=== PATIENT | female | born 1935 ===

== ENCOUNTER 2021-04-16 19:49 | Inpatient (IN) | payer MEDICARE, OTHER, SELFPAY ==
--- NOTE | 2021-04-16 20:20 | PM.HP.1 ---
History of Present Illness History of Present Illness Chief complaint: Dx GI bleed Narrative: Sharon Mcnally is a 85 year old female with a medical history of sick sinus syndrome with pacer, proximal atrial fibrillation on eliquis, essential hypertension, coronary artery disease in [place] artery, reactive airway disease, jwb-uubkhwj-rkntovcvi type 2 diabetes, history of WI, history of stroke, hyperlipidemia, restless leg syndrome, right bundle emily block, PVD, and CKD stage III being transferred from [facility] for lower GI Bleed, Dr. Russo has accepted and will consult/scope tomorrow. Patient was recently hospitalized at [facility] from 03/04-03/18/2021 with a discharge diagnosis of CVA (left leg weakness, dysarthria, and mild facial droop) left leg cellulitis, reactive airway disease and restless leg syndrome. Through patient reports that she developed rust colored stool approximately 1 week ago then 3 or so days ago she had bright red diarrhea, then she continued to have small bowel movements the last few days that were continued to be rest colored she notes that she stopped her Eliquis 2.5 days ago following the red blood diarrhea. Over the past week she has had increasing mild shortness of breath, chills, leg pain, and increasing fatigue. She has no history GI bleed. She believes she had a colonoscopy and EGD last about 2008. She denies chest pain, abdominal pain, nausea, vomiting, urinary symptoms, hematuria, new weakness, numbness, tingling, headache, changes in vision. She denies any recent illness injury or trauma. Patient arrived with her 1st unit of blood infusing patient is O-positive. Her vital signs are stable temp 97.1?, BP 147/82, HR 72, RR 18, O2 saturation 93% on room air. Patient does note that she ambulates at home with a stick. Patient's labs at [facility] HGB 6.3, HCT 19.8, BUN 40, creatinine 1.63, glucose 216, AST 13, alk-phos 119, PT 10.7, INR 1.0, albumin 3.2, RBC 2.3, lipase and troponin both WNL. CT of abdomen with contrast no acute inflammatory process present mild constipation, and sigmoid diverticulosis. Patient History Medical History Acquired hypothyroidism Chronic kidney disease, stage III (moderate) Coronary artery disease involving [place] coronary artery Essential hypertension History of myocardial infarction History of stroke Hyperlipidemia Non-insulin dependent type 2 diabetes mellitus Paroxysmal atrial fibrillation Peripheral vascular disease due to secondary diabetes Reactive airway disease Restless leg syndrome Right bundle branch block (RBBB) Sick sinus syndrome Statin intolerance Surgical History History of cholecystectomy History of coronary artery bypass graft History of permanent cardiac pacemaker placement Family & Social History Family History Mother Diabetes mellitus Congestive heart failure CAD (coronary artery disease) Son Diabetes mellitus Social History: [place], retired, and lives alone. Tobacco & Substance use: Tobacco patient quit smoking in 1997-smoked an average of 1 pack per day times 25 years Alcohol patient does not drink alcohol Drugs patient does not use recreational substances Meds Home Medications and Allergies Home Medications Medication Instructions Recorded Confirmed Type albuterol 90 mcg/actuation aerosol 1 mcg INHALATION PRN PRN 04/16/21 04/16/21 History inhaler apixaban 5 mg tablet 5 mg PO BID 04/16/21 04/16/21 History azelastine 137 mcg (0.1 %) nasal 1 spray INTRANASAL BID 04/16/21 04/16/21 History spray aerosol budesonide-formoterol HFA 160 2 puff INHALATION BID 04/16/21 04/16/21 History mcg-4.5 mcg/actuation aerosol inhaler (Symbicort) calcium acetate(phosphat bind) 667 667 mg PO TID 04/16/21 04/16/21 History mg capsule carvedilol 12.5 mg tablet (Coreg) 37.5 mg PO BID 04/16/21 04/16/21 History cholecalciferol (vitamin D3) 25 25 mcg PO DAILY 04/16/21 04/16/21 History mcg (1,000 unit) tablet cinnamon bark 500 mg capsule 500 mg PO DAILY 04/16/21 04/16/21 History felodipine 2.5 mg tablet,extended 2.5 mg PO DAILY 04/16/21 04/16/21 History release 24 hr glimepiride 2 mg tablet 6 mg PO DAILY 04/16/21 04/16/21 History levothyroxine 100 mcg tablet 100 mcg PO DAILY 04/16/21 04/16/21 History lisinopril 5 mg tablet 5 mg PO BID 04/16/21 04/16/21 History nitroglycerin 0.4 mg sublingual 0.4 mg SUBLINGUAL Q5-15M PRN 04/16/21 04/16/21 History tablet pramipexole 0.25 mg tablet 0.25 mg PO BEDTIME 04/16/21 04/16/21 History (Mirapex) rosuvastatin 5 mg tablet (Crestor) 5 mg PO DAILY 04/16/21 04/16/21 History vitamin A-vitamin C-vit E-min 1 tab PO DAILY 04/16/21 04/16/21 History tablet vitamin B complex (B 1 tab PO DAILY 04/16/21 04/16/21 History Complex-Vitamin B12) Allergies Allergy/AdvReac Type Severity Reaction Status Date / Time amlodipine Allergy Intermediate Flushing Verified 04/16/21 20:29 hydralazine Allergy Intermediate Verified 04/16/21 20:37 metformin Allergy Intermediate Vomiting Verified 04/16/21 20:37 Yeast Allergy Intermediate Hypertensio Verified 04/16/21 20:37 n codeine Allergy Mild Verified 04/16/21 20:37 fluticasone [From Flonase] Allergy Mild Verified 04/16/21 20:37 Oxasfqi-Jex-Osu Reductase Allergy Verified 04/16/21 20:37 Inhibitor Sulfa (Sulfonamide Allergy Verified 04/16/21 20:37 Antibiotics) cilostazol AdvReac Intermediate Nose Bleed Verified 04/16/21 20:37 alendronate sodium AdvReac Mild Verified 04/16/21 20:37 [From Fosamax] Review of Systems Review of Systems Narrative: All 12 point systems reviewed with the patient and are negative except otherwise documented. Exam Narrative Exam Narrative: General: Patient is a well-developed, well-nourished in no distress at this time. HEENT: Normocephalic, atraumatic, extraocular muscles intact, oral pharynx is clear and mucous membranes are moist. Neck is supple and symmetric, trachea is midline, no adenopathy, no thyroid enlargement, nontender, no masses palpated. Negative for JVD Chest: Normal AP diameter and contour without kyphoscoliosis, no nasal flaring, retractions, or tachypneic labored Lungs: Auscultation of all lung jensen decreased throughout, coarse, diffuse expiratory wheezing, audible wheezing. Cardio: Adynamic precordium, regular rate and rhythm Abdomen: Soft nontender, negative for organomegaly, or masses. Bowel sounds are present in all 4 quadrants without guarding or rebound, no CVA tenderness. Musculoskeletal: Muscle strength and tone are equal within normal limits, no deformity, crepitus, effusions, cyanosis, clubbing or edema present. Full range of motion intact radial and pedal pulses are normal. Skin: Warm dry and intact without ulcerations or petechiae. Patient has noted lichen sclerosis to mid abdomen, without signs of infection. Neuro: Alert and orientated x3, strength is +5/5 in all extremities, sensation to touch intact, no gross deficits noted of cranial nerves. Psych: Patient has a well-kept appearance, appropriate affect, mental status attitude thought context and judgment are appropriate for age. Assessment & Plan Assessment & Plan narrative: Sharon Mcnally is a 85 year old female with a medical history of sick sinus syndrome with pacer, proximal atrial fibrillation, essential hypertension, coronary artery disease in [place] artery, reactive airway disease, olk-jkbybvu-chvqvcbmk type 2 diabetes, history of WI, history of stroke, hyperlipidemia, restless leg syndrome, right bundle emily block, PVD, and CKD stage III being transferred from [facility] for Lower GI Bleed, Dr. Russo has accepted and will consult/scope tomorrow. 1. Acute lower GI bleed, acute, present on admission, in the setting of sick sinus syndrome, proximal atrial fibrillation anticoagulated on Eliquis, pacemaker, acute on chronic, present on admission-patient is stable and in no distress. -as evidence by melena, positive Hemoccult, HGB 6.3, HCT 19.8 RBC 2.3. -hold patient's Eliquis-Last known dose 2.5days ago. -To be managed by surgery Dr. Russo/Dr. Laurent -patient admitted under transfusion protocol: 1st unit of blood is currently infusing, patient typed and crossed O-positive blood type will receive second unit will recheck H&H 30 minutes following. -Dr. Russo personally consulted and evaluated patient upon admit. Dr. Laurent will perform scope in the morning. -40 mg IV Protonix b.i.d. -patient NPO -patient's pressures are stable will not order fluids at this time concern for fluid overload, will monitor I&O. -Morning Labs ordered -I personally reviewed all patient records from admit March 04, 2021 to [facility], and diagnostic results from ED visit 04/16/2021. [facility] Imaging: -CTA head neck 02/27/2021 no significant abnormal TS of the intra or extracranial circulations, atherosclerotic calcification of the carotid bifurcations without hemodynamically significant narrowing. -XR modified barium swallow 03/07/2021 findings noted ingestion with thin, nectar thick liquids as well as solid consistencies demonstrated multiple episodes of penetration without laci aspiration no cough reflex was elicited there was moderate vallecur and piriform sinus residue. No evidence of laci aspiration. -XR swallowing function with video findings: Multiple episodes of penetration, predominantly with liquids with and without chin tuck -CT head w/o contrast found no evidence of acute intra cranial abnormality, moderate white matter microvascular ischemic changes, and chronic severe left para nasal sinus disease with complete opacification of the left maxillary, sphenoid, and frontal sinuses and ethmoid air cells, progressed since 2016. -Echocardiogram 02/2021 left ventricular ejection fraction 55-60% no regional wall motion abnormalities there is marked biatrial enlargement mild mitral regurgitation is present and moderate tricuspid regurgitation is present aortic leaflets are moderately sclerotic without stenosis estimated pulmonary artery pressure is mildly elevated normal agitated bubble contrast study. Compared to echocardiogram of 11/12/2018 no significant changes was noted -Complete 2D TTE with color flow and Doppler the study is technically difficult left ventricular ejection fraction is 55%. Normal left ventricular chamber size wall thickness and systolic function no regional wall motion abnormalities right ventricular normal right ventricular size and function atria there is marked by atrial enlargement mitral valve mild sclerotic changes of the mitral valve are present mild mitral regurgitation is present aorta and aortic valve normal caliber aortic root, ascending aorta aortic arch and descending thoracic aorta estimated pulmonary artery pressure is mildly elevated. Peak estimated pulmonary artery pressure is 42 estimated RA pressure is 8 mmHg. 2. Essential hypertension in the setting of history of WI and stroke, chronic, present admission -continue patient's lisinopril, Coreg 37.5 b.i.d. felodipine -monitored on telemed, hold Eliquis 3. Hyperlipidemia and coronary artery disease associated mud-ghdwquw-hhefwpmsj type 2 diabetes resulting in chronic kidney disease stage 3, chronic, present on admission -patient placed on diabetes protocol, blood sugar checks q.6 hours while NPO then change to a.c. HS, low-dose sliding scale -continue patient's Crestor, and glyburide once no longer NPO 4. Reactive airway disease, chronic, present on admission -respiratory consult as needed, continue patient's Symbicort and albuterol inhalers 5. Acquired hypothyroidism, chronic, present on admission -Continue patient's levothyroxine once no longer NPO -TSH ordered 6. Restless leg syndrome, chronic, present on admission Continue patient's Mirapex, once no longer NPO 7. Chronic kidney disease stage 3, related to diabetes, hyperlipidemia, CAD, & PVD, chronic, present on admission -initial [employer] 1.63, BUN 40- 03/01/2021 creatinine 1.78, BUN 44 -patient is at baseline Code status:DNR Surrogate decision maker: Sam Maldonado COVID PCR:Negative COVID vaccination: unknown DVT/VTE prophylaxis:SCD's Only Disposition: Patient admitted for lower GI bleed will require surgery consult and colonoscopy, estimated length of stay greater than 2 midnights. I have utilized all available immediate resources to obtain, update, or review the patient's current medications. I confirmed that the patient's advanced care plan is present, Code status is documented and/or surrogate decision maker is listed in the patient's medical record. Time Spent With Patient Critical Care time: I spent a total of [] minutes of critical care time on this patient's care today; this time is exclusive of procedural time.
[2021-04-16 21:55] VITALS: BP 147/82; PULSE 72; RESP 18; TEMP 36.2; O2SAT 97
[2021-04-16 22:04] VITALS: BMI 33.9
--- NOTE | 2021-04-16 22:24 | PC.NURSE ---
Addendum entered by Anita Norman R.N. 04/16/21 23:00: [facility] hospitalist Darvin informed of pt's arrival and in to see patient. Pt NPO and oral swabs provided. Pt oriented to call light. Original Note: Pt arrived via ambulance from [facility] 2156. Blood transfusion completed by medics upon pt's arrival to room. Vital signs T 97.1, RR 18, P 72 with BP 147/82. Room air 97%. Pt's mentation is appropriate. Admission assessment completed. Telemetry placed on pt immediately upon arrival to floor and ICU notified.
--- NOTE | 2021-04-16 22:53 | PM.CN ---
History of Present Illness Consult details Date Patient Seen: 04/16/21 Time Patient Seen: 22:53 Chief complaint: Dx GI bleed Reason for consult: GI bleed Requesting provider: Lon Mireles Narrative: patient is a woman who I was called early in transferred from [facility]. patient began bleeding about a week ago. She suspected it was blood and decreased her Eliquis which she has started 2 months ago to 1 pill a day instead of 2 pills a day. She had 2 large bloody bowel movements a few days ago and it is been at least 2 days since she has had any Eliquis. She was placed on Eliquis apparently for cardiac dysrhythmia. She has a pacemaker. She has never had blood before. It has been at least 15 years since her last colonoscopy. She is known to be a diabetic and has hypertension as well. She also has chronic renal failure with a creatinine of 1.6 As per the emergency physician at [facility] with whom I spoke. Meds Home Medications and Allergies Home Medications Medication Instructions Recorded Confirmed Type albuterol 90 mcg/actuation aerosol 1 mcg INHALATION PRN PRN 04/16/21 04/16/21 History inhaler apixaban 5 mg tablet 5 mg PO BID 04/16/21 04/16/21 History azelastine 137 mcg (0.1 %) nasal 1 spray INTRANASAL BID 04/16/21 04/16/21 History spray aerosol budesonide-formoterol HFA 160 2 puff INHALATION BID 04/16/21 04/16/21 History mcg-4.5 mcg/actuation aerosol inhaler (Symbicort) calcium acetate(phosphat bind) 667 667 mg PO TID 04/16/21 04/16/21 History mg capsule carvedilol 12.5 mg tablet (Coreg) 37.5 mg PO BID 04/16/21 04/16/21 History cholecalciferol (vitamin D3) 25 25 mcg PO DAILY 04/16/21 04/16/21 History mcg (1,000 unit) tablet cinnamon bark 500 mg capsule 500 mg PO DAILY 04/16/21 04/16/21 History felodipine 2.5 mg tablet,extended 2.5 mg PO DAILY 04/16/21 04/16/21 History release 24 hr glimepiride 2 mg tablet 6 mg PO DAILY 04/16/21 04/16/21 History levothyroxine 100 mcg tablet 100 mcg PO DAILY 04/16/21 04/16/21 History lisinopril 5 mg tablet 5 mg PO BID 04/16/21 04/16/21 History nitroglycerin 0.4 mg sublingual 0.4 mg SUBLINGUAL Q5-15M PRN 04/16/21 04/16/21 History tablet pramipexole 0.25 mg tablet 0.25 mg PO BEDTIME 04/16/21 04/16/21 History (Mirapex) rosuvastatin 5 mg tablet (Crestor) 5 mg PO DAILY 04/16/21 04/16/21 History vitamin A-vitamin C-vit E-min 1 tab PO DAILY 04/16/21 04/16/21 History tablet vitamin B complex (B 1 tab PO DAILY 04/16/21 04/16/21 History Complex-Vitamin B12) Allergies Allergy/AdvReac Type Severity Reaction Status Date / Time amlodipine Allergy Intermediate Flushing Verified 04/16/21 20:29 hydralazine Allergy Intermediate Verified 04/16/21 20:37 metformin Allergy Intermediate Vomiting Verified 04/16/21 20:37 Yeast Allergy Intermediate Hypertensio Verified 04/16/21 20:37 n codeine Allergy Mild Verified 04/16/21 20:37 fluticasone [From Flonase] Allergy Mild Verified 04/16/21 20:37 Nyqzwdd-Bkb-Han Reductase Allergy Verified 04/16/21 20:37 Inhibitor Sulfa (Sulfonamide Allergy Verified 04/16/21 20:37 Antibiotics) cilostazol AdvReac Intermediate Nose Bleed Verified 04/16/21 20:37 alendronate sodium AdvReac Mild Verified 04/16/21 20:37 [From Fosamax] Review of Systems Review of Systems Narrative: no cough or cold at this time. She does get a little short winded with walking. No chest pain. No black stool. No seizures or blackouts. Exam Vital Signs (past 8 hours): - 04/16/21 21:55 Temperature 97.1 F L Pulse Rate 72 Respiratory Rate 18 Blood Pressure 147/82 H Pulse Oximetry 97 Oxygen Flow Rate 0 Narrative Exam Narrative: Cooperative pleasant woman in no distress. Eyes are nonicteric. Lungs are clear to auscultation without rales or rhonchi. Heart regular rate and rhythm without murmur gallop. Abdomen is protuberant soft nontender without mass. She has a rough irregular patch of skin at the umbilicus. No obvious hernias. [facility] Medical History (Updated 04/16/21 @ 23:01 by Alfredo Russo MD) Acquired hypothyroidism Chronic kidney disease, stage III (moderate) Coronary artery disease involving [place] coronary artery Essential hypertension History of myocardial infarction History of stroke Hyperlipidemia Non-insulin dependent type 2 diabetes mellitus Paroxysmal atrial fibrillation Peripheral vascular disease due to secondary diabetes Reactive airway disease Restless leg syndrome Right bundle branch block (RBBB) Sick sinus syndrome Statin intolerance Surgical History (Updated 04/16/21 @ 22:58 by Alfredo Russo MD) History of cholecystectomy History of coronary artery bypass graft History of permanent cardiac pacemaker placement Family History Mother Diabetes mellitus Congestive heart failure CAD (coronary artery disease) Son Diabetes mellitus Social History household members: none Tobacco & Substance Use Smoking Status: Former smoker alcohol intake: former Assessment & Plan Assessment and plan (1) GI bleed: Status: Acute (2) Acute blood loss anemia: Status: Acute Assessment & Plan narrative: patient with what sounds like a lower GI bleed related to recently starting Eliquis. She stopped it at least 2 days ago. Recommend transfusion to a crit around 30 given her cardiac status and her symptoms with exertion which only began recently. Will probably come to colonoscopy this admission. I will communicate with my partner Dr. Laurent about this patient in the morning. Time Spent With Patient Critical Care time: I spent a total of [] minutes of critical care time on this patient's care today; this time is exclusive of procedural time.
[2021-04-17] VITALS (17 sets, daily range): BP systolic 126–182; BP diastolic 64–89; PULSE 60–67; RESP 14–21; TEMP 35.8–36.7; O2SAT 91–96
[2021-04-17] MEDS: ACETAMINOPHEN 325 MG TABLET 650 MG PO ×2 (03:29→11:19)
[2021-04-17 05:51] LABS: INR 1.2 (0.9-1.3); Prothrombin Time 13.3 SECONDS (10.1-12.7)
[2021-04-17 05:53] LABS: PTT Partial Thromboplastin Tim 41 SECONDS (26.4-36.2)
[2021-04-17 05:55] LABS: Hemoglobin 8.3 g/dL (12.0-16.0)
[2021-04-17 05:59] LABS: Alanine Aminotransferase 21 IU/L (<35); Albumin 3.7 g/dL (3.5-5.0); Albumin Globulin Ratio 1.2 (1.0-2.8); Alkaline Phosphatase 105 U/L (38-126); Aspartate Aminotransferase 31 IU/L (14-36); BUN Creatinine Ratio 25.2 (6-22); Bilirubin Total 0.5 mg/dL (0.2-1.3); Blood Urea Nitrogen 40 mg/dL (7-17); Calcium 8.8 mg/dL (8.4-10.2); Carbon Dioxide 30 mmol/L (22-32); Chloride 106 mmol/L (98-107); Estimated Glomerular Filt Rate 30.9 mL/min (>60); Glucose 90 mg/dL (80-110); HEMOLYSIS < 15 (0-50); Hematocrit 25.7 % (36-46); Magnesium 1.7 mg/dL (1.6-2.3); Potassium 4.6 mmol/L (3.4-5.1); Sodium 142 mmol/L (137-145); Total Protein 6.7 g/dL (6.3-8.2)
[2021-04-17 06:08] LABS: Troponin I < 0.012 ng/mL (0.01-0.034)
[2021-04-17 06:37] LABS: Thyroid Stimulating Hormone 21.4 uIU/mL (0.47-4.68)
[2021-04-17 06:40] LABS: Hemoglobin A1C% w Est Avg Glu 6.2 % (4.0-6.0)
[2021-04-17] MEDS: BUDESONIDE 0.5 MG/2 ML NEB INH (09:00)
[2021-04-17] MEDS: ALBUTEROL 2.5 MG/3 ML NEB (ADULT) INH ×2 (09:00→13:29)
--- NOTE | 2021-04-17 11:15 | CM.DANOTE ---
DCP: Case received, EMR reviewed and met with patient. Introduced self and role. Was able to get information from patient regarding her baseline activity status prior to hospitalization. DCP assessment completed with information currently available. Patient is an 85 year old female who admitted yesterday afternoon to the care of the hospitalist team. PCP: Dr. Huber at [facility]. Payer: confirmed: Medicare/. Patient came to the hospital via ambulance sent from [facility] secondary to her having some shortness of breath. Patient holds diagnosis of GI Bleed. She was transferred here due to the hospital being full. Patient had recently been to [facility]04-04-10. Patient has history of sick sinus syndrome and has a pacemaker. She also has CKD stage 3 as well. Patient was receiving a transfusion, and is expected to have a colonoscopy. Met with patient. There was no insurance, provider, phone or contact information on her face sheet. She indicated that she has Medicare primary, secondary. She has a son named Lon who is POA, and lives in [place]. Patient stated she lives in [place], was able to obtain her phone number. Sent an email to change admission group with updated information from patient. Patient confirms that she lives alone, and her primary care provider is Dr. Huber at [facility]. She indicated that she is independent, uses a walking stick. She has a son named Lon, as stated above, her other son, Negro, , but her [id number] lives near-by. She is . P: DCP to continue to follow. She does not currently have P.T. orders, but will see how she does medically. Home Health may be an option for patient, and P.T. orders may need to be considered. Kim Rendon RN/[employer] Discharge Planning/Care Management CM Discharge Assessment Start: 04/17/21 11:09 Freq: Status: Active Protocol: Document 04/17/21 11:09 (Rec: 04/17/21 11:15 [id number]) Discharge Planning Assessment Assigned [employer]iler [employer] Kim Rendon RN/[employer] Advance Directives? No History Provided By Patient,Medical Record Prior Living Arrangements Mobile home Household Members none Type of transporation used prior to Drives own vehicle admit Independent with ADL's Yes Is patient alert and oriented? Yes Caregiver for Another No DME Already Rented / Owned Cane Comment Patient indicated that she uses a walking stick. Comment She lives alone in her trailer , but indicated that she has family nearby Discharge Plan Home Transportation Arrangement Family Referrals Initiated None needed Whiteboard Updated in Patient Room with Yes name and ext. 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
[2021-04-17] MEDS: lisinopriL 5 MG TABLET PO ×2 (11:19→21:38)
[2021-04-17] MEDS: carvediloL 12.5 MG TABLET 37.5 MG PO ×2 (11:19→21:38)
[2021-04-17] MEDS: PANTOPRAZOLE 40 MG VIAL IV ×2 (11:20→21:38)
[2021-04-17] MEDS: INFLUENZA HD VACCINE 0.7 ML SYRINGE IM (11:20)
--- NOTE | 2021-04-17 11:44 | PM.CALLCOV.1 ---
Call Coverage Note Note Date of Patient Contact: 04/17/21 Time of Patient Contact: 11:44 Narrative of Care Provided: No acute events. -Clears and bowel prep ordered for today. -NPO after midnight. -Colonoscopy Wednesday 04/18
[2021-04-17] MEDS: PEG3350/SOD SULF,BICARB,CL/KCL 4,000 ML SOLUTION 4000 ML PO (13:30)
--- NOTE | 2021-04-17 14:29 | PM.PN.1 ---
Subjective Subjective Date Patient Seen: 04/17/21 Time Patient Seen: 14:29 Interval history: No further bowel movements today. Feels slightly stronger, no shortness of breath today. Exam Vital Signs (past 8 hours): - 04/17/21 08:15 04/17/21 08:16 04/17/21 09:00 Temperature 97.4 F L 97 F L Pulse Rate 60 60 Respiratory Rate 16 18 Blood Pressure 166/78 H 166/78 H Pulse Oximetry 91 04/17/21 09:02 04/17/21 12:00 04/17/21 13:32 Temperature 97 F L Pulse Rate 64 61 Respiratory Rate 18 18 Blood Pressure 135/67 Pulse Oximetry 94 95 96 Oxygen Delivery Method Room Air Oxygen Flow Rate 0 Narrative Exam Narrative: General:? Patient is a well-developed, well-nourished in no distress at this time. Lungs:? mild diffuse wheezing, much improved, no respiratory distress. No rhonchi or rales. Cardio:?RRR with no m/r/g. Abdomen:? S NT ND Musculoskeletal:? No tenderness of joint effusions Skin:? Warm dry and intact without ulcerations or petechiae. Neuro:? Alert and orientated x3, strength is +5/5 in all extremities, sensation to touch intact, no gross deficits noted of cranial nerves. Psych:? Patient has a well-kept appearance, appropriate affect, mental status attitude thought context and judgment are appropriate for age. Objective Labs Result Diagrams: 04/17/21 05:10 04/17/21 05:10 Labs: Laboratory Results - last 24 hr 04/16/21 04/17/21 04/17/21 23:00 05:10 05:10 Hgb Hct PT 13.3 H INR 1.2 APTT 41 H Sodium 142 Potassium 4.6 Chloride 106 Carbon Dioxide 30 BUN 40 H Creatinine 1.59 H Estimated GFR 30.9 L BUN/Creatinine Ratio 25.2 H Glucose 90 Hemoglobin A1c Calcium 8.8 Magnesium 1.7 Total Bilirubin 0.5 AST 31 ALT 21 Alkaline Phosphatase 105 Troponin I < 0.012 Total Protein 6.7 Albumin 3.7 Globulin 3.0 Albumin/Globulin Ratio 1.2 TSH Blood Type O Positive Antibody Screen Negative Crossmatch See Detail 04/17/21 04/17/21 04/17/21 05:10 05:10 05:10 Hgb 8.3 L Hct 25.7 L PT INR APTT Sodium Potassium Chloride Carbon Dioxide BUN Creatinine Estimated GFR BUN/Creatinine Ratio Glucose Hemoglobin A1c 6.2 H Calcium Magnesium Total Bilirubin AST ALT Alkaline Phosphatase Troponin I Total Protein Albumin Globulin Albumin/Globulin Ratio TSH 21.4 H Blood Type Antibody Screen Crossmatch [facility] Medical History Acquired hypothyroidism Chronic kidney disease, stage III (moderate) Coronary artery disease involving [place] coronary artery Essential hypertension History of myocardial infarction History of stroke Hyperlipidemia Non-insulin dependent type 2 diabetes mellitus Paroxysmal atrial fibrillation Peripheral vascular disease due to secondary diabetes Reactive airway disease Restless leg syndrome Right bundle branch block (RBBB) Sick sinus syndrome Statin intolerance Surgical History History of cholecystectomy History of coronary artery bypass graft History of permanent cardiac pacemaker placement Family History Mother Diabetes mellitus Congestive heart failure CAD (coronary artery disease) Son Diabetes mellitus Social History household members: none Smoking Status: Former smoker alcohol intake: former Assessment & Plan Assessment & Plan narrative: Sharon Mcnally is a 85 year old female with a medical history of sick sinus syndrome with pacer, proximal atrial fibrillation, essential hypertension, coronary artery disease in [place] artery, reactive airway disease, orl-tmbzfhj-xvomgyady type 2 diabetes, history of ND, history of stroke, hyperlipidemia, restless leg syndrome, right bundle emily block, PVD, and CKD stage III direct admission from [facility] for GI bleeding and acute blood loss anemia. 1. Acute lower GI bleed, acute, present on admission, in the setting of sick sinus syndrome, proximal atrial fibrillation anticoagulated on Eliquis, pacemaker, acute on chronic, present on admission-patient is stable and in no distress. - eliquis held. Plan for prep tonight and c-scope tomorrow. Hg 6.3 on admit, improved to 8.3 after 2 U PRBC. Surgery requested 3rd unit. Will repeat h/h tonight. - shortness of breath improved, likely symptomatic anemia. TTE noted below, no acute ischemia on EKG, negative troponins. dyspnea appears to be related to anemia. -Echocardiogram 02/2021?left ventricular ejection fraction 55-60% no regional wall motion abnormalities there is marked biatrial enlargement mild mitral regurgitation is present and moderate tricuspid regurgitation is present aortic leaflets are moderately sclerotic without stenosis estimated pulmonary artery pressure is mildly elevated normal agitated bubble contrast study.? Compared to echocardiogram of 11/12/2018 no significant changes was noted ? 2. Essential hypertension in the setting of history of ND and stroke, chronic, present admission -continue patient's lisinopril, Coreg 37.5 b.i.d. felodipine -monitored on telemetry, hold Eliquis 3. Hyperlipidemia and coronary artery disease associated gav-vbtkslb-wienbwagc type 2 diabetes resulting in chronic kidney disease stage 3, chronic, present on admission -patient placed on diabetes protocol, blood sugar checks q.6 hours while NPO then change to a.c. HS, low-dose sliding scale -continue patient's Crestor, and glyburide once no longer NPO -A1c 6.2%. Consider cessation of glyburide. 4. Reactive airway disease, chronic, present on admission -respiratory consult as needed, continue patient's Symbicort and albuterol inhalers 5. Acquired hypothyroidism, chronic, present on admission -Continue patient's levothyroxine -TSH 21.4, free t4 ordered. consider increase in levothyroxine dosing. 6. Restless leg syndrome, chronic, present on admission Continue patient's Mirapex, 7. Chronic kidney disease stage 3, related to diabetes, hyperlipidemia, CAD, & PVD, chronic, present on admission -initial [employer] 1.63, BUN 40- 03/01/2021 creatinine 1.78, BUN 44 -patient appears to be at baseline Code status:DNR Surrogate decision maker: Sam Maldonado COVID PCR:Negative COVID vaccination: unknown DVT/VTE prophylaxis:SCD's Only Disposition: Probable discharge home tomorrow if h/h remains stable and colonoscopy is uneventful. Time Spent With Patient Critical Care time: I spent a total of [] minutes of critical care time on this patient's care today; this time is exclusive of procedural time. Quality VTE Deep Vein Thrombosis/Pulmonary Embolism Present on Admission: No
[2021-04-17 15:00] LABS: Hematocrit 28.8 % (36-46); Hemoglobin 9.5 g/dL (12.0-16.0)
--- NOTE | 2021-04-17 16:02 | PC.NURSE ---
Blood transfused, no transfusion reaction seen. No abd pain. Did have a dk stool after lunch which did quiac positive. Has started her golyely prep and is taking it with out problems.
[2021-04-18] VITALS (28 sets, daily range): BP systolic 112–170; BP diastolic 51–89; PULSE 58–95; RESP 10–20; TEMP 35.5–36.5; O2SAT 93–100; BMI 33.7
[2021-04-18] MEDS: ACETAMINOPHEN 325 MG TABLET 650 MG PO ×2 (00:52→21:30)
--- NOTE | 2021-04-18 01:19 | PC.NURSE ---
Patient is alert and oriented and speech slightly slurred but relates she had CVA/TIA in February. Breath sounds CTA with RA sat of 95%; denies SOB. HRR with telemetry reading of av paced. BP elevated at 159/77. Denies nausea. BT present and abdomen is soft; had loose stools on previous shift related to taking Go-Lytely in prep for colonoscopy in a.m. States she has some urinary urgency and sometimes incontinence but denies dysuria. Is able to turn herself in bed. Up to [facility] with walker and 1 assist; denies weakness. Has 2+ bilateral LE edema. States she also has some decreased sensation in left foot. Denied pain at time of assessment but later complained of 3/10 pain in right hip and was medicated with Tylenol. Is currently NPO for planned colonoscopy and CBG at 0030 was 151. Wearing bilateral calf SCD's. Fall risk score is moderate and bed alarm is activated. HOB is elevated at 15 degrees.
[2021-04-18] MEDS: ALBUTEROL 2.5 MG/3 ML NEB (ADULT) INH ×3 (02:37→19:30)
[2021-04-18] MEDS: BUDESONIDE 0.5 MG/2 ML NEB INH ×2 (05:37→19:33)
[2021-04-18 05:40] LABS: Hematocrit 28.2 % (36-46); Hemoglobin 9.3 g/dL (12.0-16.0)
[2021-04-18 05:43] LABS: INR 1.2 (0.9-1.3); Prothrombin Time 13.6 SECONDS (10.1-12.7)
[2021-04-18 05:46] LABS: PTT Partial Thromboplastin Tim 39 SECONDS (26.4-36.2)
[2021-04-18 05:47] LABS: Alanine Aminotransferase 17 IU/L (<35); Albumin 3.3 g/dL (3.5-5.0); Albumin Globulin Ratio 1.1 (1.0-2.8); Alkaline Phosphatase 97 U/L (38-126); Aspartate Aminotransferase 28 IU/L (14-36); BUN Creatinine Ratio 22.1 (6-22); Bilirubin Total 0.4 mg/dL (0.2-1.3); Blood Urea Nitrogen 30 mg/dL (7-17); Calcium 8.6 mg/dL (8.4-10.2); Carbon Dioxide 30 mmol/L (22-32); Chloride 107 mmol/L (98-107); Globulin 2.9 g/dL (1.7-4.1); Glucose 81 mg/dL (80-110); HEMOLYSIS < 15 (0-50); Potassium 3.7 mmol/L (3.4-5.1); Sodium 141 mmol/L (137-145); Total Protein 6.2 g/dL (6.3-8.2)
[2021-04-18 06:03] LABS: Free T4, Direct Thyroxine 0.92 ng/dL (0.78-2.19)
[2021-04-18] MEDS: DEXTROSE 50 % IN WATER 25 GM/50 ML SYRINGE IV (07:47)
[2021-04-18] MEDS: lisinopriL 5 MG TABLET PO ×2 (09:31→21:33)
[2021-04-18] MEDS: carvediloL 12.5 MG TABLET 37.5 MG PO ×2 (09:32→21:31)
[2021-04-18] MEDS: LEVOTHYROXINE 100 MCG TABLET PO (09:32)
[2021-04-18] MEDS: PANTOPRAZOLE 40 MG VIAL IV ×2 (09:32→21:30)
[2021-04-18] MEDS: SODIUM CHLORIDE 0.9% FLUSH 10 ML IV (09:36)
--- NOTE | 2021-04-18 11:56 | PM.PREOP ---
Pre-operative Note COVID-19 COVID-19 status: Negative Interval Note History & Physical reviewed/Exam performed by Physician: Yes Changes to H&P: No ASA Class (for procedural sedation): IV
--- NOTE | 2021-04-18 13:15 | PM.OP.ENDO ---
Operative Date/Time/Diagnoses Date of procedure: 04/18/21 Time of procedure: 13:15 Pre-op diagnosis: GI bleed Post-op diagnosis: same Procedure & Clinicians Study performed: Colonoscopy with anesthesia Same procedure as scheduled: Yes Indications: GI bleed Surgeon: Daniela Da Silva Procedure Notes SCOAP/Timeout: Done Procedure in detail: Preop diagnosis: GI bleed Postop diagnosis: Same Operative procedure: Colonoscopy with anesthesia Findings: No bleeding source in the colon. Fresh blood in the cecum. Surgeon: Ivon Da Silva MD Procedure: Patient placed in lateral position. Rectal exam performed showing normal tone no masses. Colonoscope inserted into the rectum and advanced to the ileocecal valve with minimal difficulty. I intubated into the terminal ileum as well. Insufflation extraction scope including retroflex in the cecum and rectum showed no bleeding source. No significant diverticulosis. Bowel prep was adequate. No masses or polyps. The above findings were identified on withdrawal. Impression: No bleeding source of the colon. No pathologic findings. Obvious bloodand the cecum and TI but no source. Plan: EGD Scope withdrawal time: 5 minutes Specimen(s): none sent Complications: none Impression: No bleeding source in the colon. Will position patient for EGD Post-procedure Recommendations: Colonscopy in 10 years Plan for aftercare: Return to hospital Follow up: as needed Disposition: PACU
--- NOTE | 2021-04-18 13:20 | PM.OP.ENDO ---
Operative Date/Time/Diagnoses Date of procedure: 04/18/21 Time of procedure: 13:20 Pre-op diagnosis: GI bleed Post-op diagnosis: same Procedure & Clinicians Study performed: EGD with anesthesia Same procedure as scheduled: Yes Indications: GI bleed Surgeon: Daniela Da Silva Procedure Notes SCOAP/Timeout: Done Procedure in detail: Preop diagnosis: GI bleed Postop diagnosis: Same Operative procedure: EGD with anesthesia Surgeon: Ivon Da Silva MD Findings: No bleeding source in the stomach. No bleeding source in the duodenum. Procedure: Patient is placed in a lateral position. Scope was inserted into the esophagus and advanced into the stomach. Insufflation identify the pylorus I intubated the duodenum. With further insufflation and extraction of the scope including retroflexed in the fundus I found no pathology and no bleeding source. This encompasses the stomach esophagus 1st 2nd and 3rd portion of duodenum Scope was extracted in the above fashion without complication. Impression: No pathology or bleeding source in the stomach. No gastritis erosions or ulcers. Plan: Discussed with medical service. Etiology of bleeding source likely small bowel Specimen(s): none sent Complications: none Impression: Normal EGD, no bleeding source Post-procedure Follow up: as needed Disposition: Acute Care
--- NOTE | 2021-04-18 16:45 | PM.PN.1 ---
Subjective Subjective Date Patient Seen: 04/18/21 Interval history: Patient admitted to the hospital for GI bleed. She had no further bleeding today. Patient underwent colonoscopy for further evaluation Exam Vital Signs (past 8 hours): - 04/18/21 09:31 04/18/21 09:32 04/18/21 11:51 Temperature 97.4 F L Pulse Rate 60 Respiratory Rate 16 Blood Pressure 148/76 H 148/76 H 157/86 H Pulse Oximetry 99 04/18/21 13:00 04/18/21 13:15 04/18/21 13:20 Temperature 96 F L 96.6 F L Pulse Rate 61 58 L 78 Respiratory Rate 16 10 L 10 L Blood Pressure 157/79 H 122/53 L 112/52 L Pulse Oximetry 100 96 95 04/18/21 13:25 04/18/21 13:30 04/18/21 13:45 Temperature Pulse Rate 85 95 H 60 Respiratory Rate 13 12 12 Blood Pressure 115/57 L 122/51 L 144/65 H Pulse Oximetry 97 99 98 04/18/21 14:00 04/18/21 14:02 04/18/21 14:15 Temperature 97 F L Pulse Rate 74 88 61 Respiratory Rate 10 L 12 12 Blood Pressure 145/63 H 144/64 H 150/61 H Pulse Oximetry 98 99 97 Oxygen Delivery Method Room Air Oxygen Flow Rate 0 Narrative Exam Narrative: Pleasant female lying in bed in no obvious distress Resp Other: Lungs: Clear to auscultation Cardio Other: Cardiac exam: Regular rate rhythm normal S1-S2 GI Other: Abdomen: Soft and nontender Extrem Other: Extremities: No edema Objective Labs Result Diagrams: 04/18/21 05:10 04/18/21 05:10 Labs: Laboratory Results - last 24 hr 04/18/21 04/18/21 04/18/21 05:10 05:10 05:10 Hgb 9.3 L Hct 28.2 L PT 13.6 H INR 1.2 APTT 39 H Sodium 141 Potassium 3.7 Chloride 107 Carbon Dioxide 30 BUN 30 H Creatinine 1.36 H Estimated GFR 37.0 L BUN/Creatinine Ratio 22.1 H Glucose 81 Calcium 8.6 Total Bilirubin 0.4 AST 28 ALT 17 Alkaline Phosphatase 97 Total Protein 6.2 L Albumin 3.3 L Globulin 2.9 Albumin/Globulin Ratio 1.1 Free T4 04/18/21 05:10 Hgb Hct PT INR APTT Sodium Potassium Chloride Carbon Dioxide BUN Creatinine Estimated GFR BUN/Creatinine Ratio Glucose Calcium Total Bilirubin AST ALT Alkaline Phosphatase Total Protein Albumin Globulin Albumin/Globulin Ratio Free T4 0.92 [facility] Medical History Acquired hypothyroidism Chronic kidney disease, stage III (moderate) Coronary artery disease involving [place] coronary artery Essential hypertension History of myocardial infarction History of stroke Hyperlipidemia Non-insulin dependent type 2 diabetes mellitus Paroxysmal atrial fibrillation Peripheral vascular disease due to secondary diabetes Reactive airway disease Restless leg syndrome Right bundle branch block (RBBB) Sick sinus syndrome Statin intolerance Surgical History History of cholecystectomy History of coronary artery bypass graft History of permanent cardiac pacemaker placement Family History Mother Diabetes mellitus Congestive heart failure CAD (coronary artery disease) Son Diabetes mellitus Social History household members: none Smoking Status: Former smoker alcohol intake: former Assessment & Plan Assessment & Plan narrative: Acute lower GI bleed, acute, present on admission, in the setting of sick sinus syndrome, proximal atrial fibrillation anticoagulated on Eliquis, pacemaker, acute on chronic, present on admission-patient is stable and in no distress. - eliquis held. Plan for prep tonight and c-scope tomorrow. Hg 6.3 on admit, improved to 8.3 after 2 U PRBC. Surgery requested 3rd unit. Will repeat h/h tonight. - shortness of breath improved, likely symptomatic anemia. TTE noted below, no acute ischemia on EKG, negative troponins. dyspnea appears to be related to anemia. -Echocardiogram 02/2021?left ventricular ejection fraction 55-60% no regional wall motion abnormalities there is marked biatrial enlargement mild mitral regurgitation is present and moderate tricuspid regurgitation is present aortic leaflets are moderately sclerotic without stenosis estimated pulmonary artery pressure is mildly elevated normal agitated bubble contrast study.? Compared to echocardiogram of 11/12/2018 no significant changes was noted -EGD negative, colonoscopy negative, bleeding continues to be identified -patient likely with a small bowel bleed, colonoscopy revealed blood in the cecum and terminal ileum but no obvious source identified -will continue to hold Eliquis -consider pill endoscopy for further evaluation of her small bowel ? 2. Essential hypertension in the setting of history of OR and stroke, chronic, present admission -continue patient's lisinopril, Coreg 37.5 b.i.d. felodipine -monitored on telemetry, hold Eliquis 3. Hyperlipidemia and coronary artery disease associated aml-yfkytzb-wxixccuyg type 2 diabetes resulting in chronic kidney disease stage 3, chronic, present on admission -patient placed on diabetes protocol, blood sugar checks q.6 hours while NPO then change to a.c. HS, low-dose sliding scale -continue patient's Crestor, and glyburide once no longer NPO -A1c 6.2%. Consider cessation of glyburide. -patient was hypoglycemic this morning, agree with holding oral hypoglycemic agent 4. Reactive airway disease, chronic, present on admission -respiratory consult as needed, continue patient's Symbicort and albuterol inhalers 5. Acquired hypothyroidism, chronic, present on admission -Continue patient's levothyroxine -TSH 21.4, free t4 ordered. consider increase in levothyroxine dosing. -will increase thyroid medication 6. Restless leg syndrome, chronic, present on admission Continue patient's Mirapex, 7. Chronic kidney disease stage 3, related to diabetes, hyperlipidemia, CAD, & PVD, chronic, present on admission -initial [employer] 1.63, BUN 40- 03/01/2021 creatinine 1.78, BUN 44 -patient appears to be at baseline Code status:DNR Time Spent With Patient Critical Care time: I spent a total of [] minutes of critical care time on this patient's care today; this time is exclusive of procedural time. Quality VTE Deep Vein Thrombosis/Pulmonary Embolism Present on Admission: No
--- NOTE | 2021-04-18 17:13 | PC.NURSE ---
pt alert and oriented, wants to go home but agreeable to stay another night, up to [facility] sm amt. loose gelatanous bloody stool aprox 20cc. vss no c/o bed alarmed call light within reach.
[2021-04-19] VITALS (9 sets, daily range): BP systolic 123–171; BP diastolic 64–90; PULSE 58–72; RESP 14–17; TEMP 35.5–36.1; O2SAT 95–100
[2021-04-19] MEDS: ACETAMINOPHEN 325 MG TABLET 650 MG PO ×2 (03:21→21:41)
--- NOTE | 2021-04-19 03:58 | PC.NURSE ---
Patient is alert and oriented. Breath sounds diminished at bases but CTA with RA sat of 96%; denies SOB. HRR. BP elevated at 145/68; no significant change with orthostatics. Denies nausea. BT hypoactive; abdomen is soft and tender in lower quads left > right. Last stool was last evening and still had blood in it. Did have smear of blood on carlo-wipe after urinating but no stool. Denies dysuria, frequency or urgency. Able to move self in bed and gets up to [facility] with walker and SBA. Complained of 3/10 bilateral hip pain so medicated with Tylenol. 2+ bilateral LE edema. Wearing bilateral calf SCD's. Fall risk score is high and bed alarm is activated. HOB is elevated 15 degrees as per order.
[2021-04-19 07:55] LABS: Add Manual Diff / Slide Review NO; Basophils Absolute Auto 100 /uL (0-100); Eosinophils Absolute Auto 200 /uL (0-450); Eosinophils Percent Auto 3.9 % (2-4); Hematocrit 29.5 % (36-46); Hemoglobin 9.6 g/dL (12.0-16.0); Lymphocytes Absolute Auto 1300 /uL (1100-4500); Lymphocytes Percent Auto 23.5 % (25-40); Mean Corpuscular HGB Conc 32.5 % (30-36); Mean Corpuscular Hemoglobin 27.7 PG (26-34); Mean Corpuscular Volume 85.3 fL (80-100); Monocytes Absolute Auto 500 /uL (0-900); Monocytes Percent Auto 9.2 % (3-14); Neutrophils Absolute Auto 3500 /uL (1500-7000); Neutrophils Percent Auto 62.4 % (50-75); Platelet Count 217 X10^3/uL (150-400); Red Blood Cell Count 3.46 X10^6/uL (4.0-5.2); Red Cell Distribution Width 17.3 % (11.6-14.8); White Blood Cell Count 5.7 X10^3/uL (4.5-11.0)
[2021-04-19 08:08] LABS: INR 1.2 (0.9-1.3); Prothrombin Time 13.6 SECONDS (10.1-12.7)
[2021-04-19 08:10] LABS: PTT Partial Thromboplastin Tim 40 SECONDS (26.4-36.2)
[2021-04-19 08:17] LABS: Alanine Aminotransferase 15 IU/L (<35); Albumin 3.3 g/dL (3.5-5.0); Albumin Globulin Ratio 1.2 (1.0-2.8); Alkaline Phosphatase 96 U/L (38-126); Aspartate Aminotransferase 27 IU/L (14-36); BUN Creatinine Ratio 18.5 (6-22); Bilirubin Total 0.5 mg/dL (0.2-1.3); Blood Urea Nitrogen 25 mg/dL (7-17); Calcium 8.8 mg/dL (8.4-10.2); Carbon Dioxide 32 mmol/L (22-32); Chloride 106 mmol/L (98-107); Estimated Glomerular Filt Rate 37.3 mL/min (>60); Globulin 2.8 g/dL (1.7-4.1); Glucose 80 mg/dL (80-110); HEMOLYSIS < 15 (0-50); Potassium 4.5 mmol/L (3.4-5.1); Sodium 141 mmol/L (137-145); Total Protein 6.1 g/dL (6.3-8.2)
[2021-04-19] MEDS: carvediloL 12.5 MG TABLET 37.5 MG PO ×2 (08:37→21:09)
[2021-04-19] MEDS: PANTOPRAZOLE 40 MG VIAL IV (08:37)
[2021-04-19] MEDS: lisinopriL 5 MG TABLET PO ×2 (08:37→21:09)
[2021-04-19] MEDS: LEVOTHYROXINE 100 MCG TABLET PO (08:37)
--- NOTE | 2021-04-19 09:55 | PC.NURSE ---
Assess- Patient is alert and oriented x3. She just had a large liquid crimson colored stool. She has been bleeding out her rectum. Dr. Mata is going to order a CT scan of her abdomen today. She denies pain and is a sba to get up.
[2021-04-19] MEDS: ALBUTEROL 2.5 MG/3 ML NEB (ADULT) INH ×3 (10:14→21:15)
[2021-04-19] MEDS: BUDESONIDE 0.5 MG/2 ML NEB INH ×2 (10:14→21:17)
--- NOTE | 2021-04-19 10:14 | PM.PN.1 ---
Subjective Subjective Date Patient Seen: 04/19/21 Time Patient Seen: 10:14 Interval history: watery blood tinged BM just now, no clots. No BM over night and was hemodynamically stable. Exam Vital Signs (past 8 hours): - 04/19/21 04:11 04/19/21 07:00 04/19/21 10:00 Temperature 96.5 F L 96 F L Pulse Rate 58 L 60 Pulse Rate [Orthostatic Lying] 67 Pulse Rate [Orthostatic Sitting] 71 Pulse Rate [Orthostatic Standing] 60 Respiratory Rate 17 14 Blood Pressure 143/68 H 143/68 H Blood Pressure [Orthostatic Lying] 131/64 Blood Pressure [Orthostatic Sitting] 137/75 Blood Pressure [Orthostatic Standing] 123/65 Pulse Oximetry 99 95 Oxygen Delivery Method Room Air Oxygen Flow Rate 0 Narrative Exam Narrative: unchanged. Objective Labs Result Diagrams: 04/19/21 07:10 04/19/21 07:10 Labs: Laboratory Results - last 24 hr 04/19/21 04/19/21 04/19/21 07:10 07:10 07:10 WBC 5.7 RBC 3.46 L Hgb 9.6 L Hct 29.5 L MCV 85.3 MCH 27.7 MCHC 32.5 RDW 17.3 H Plt Count 217 Neut % (Auto) 62.4 Lymph % (Auto) 23.5 L [place] % (Auto) 9.2 Eos % (Auto) 3.9 Baso % (Auto) 1.0 Neut # (Auto) 3500 Lymph # (Auto) 1300 [place] # (Auto) 500 Eos # (Auto) 200 Baso # (Auto) 100 PT 13.6 H INR 1.2 APTT 40 H Sodium 141 Potassium 4.5 Chloride 106 Carbon Dioxide 32 BUN 25 H Creatinine 1.35 H Estimated GFR 37.3 L BUN/Creatinine Ratio 18.5 Glucose 80 Calcium 8.8 Total Bilirubin 0.5 AST 27 ALT 15 Alkaline Phosphatase 96 Total Protein 6.1 L Albumin 3.3 L Globulin 2.8 Albumin/Globulin Ratio 1.2 PFSH Medical History Acquired hypothyroidism Chronic kidney disease, stage III (moderate) Coronary artery disease involving [place] coronary artery Essential hypertension History of myocardial infarction History of stroke Hyperlipidemia Non-insulin dependent type 2 diabetes mellitus Paroxysmal atrial fibrillation Peripheral vascular disease due to secondary diabetes Reactive airway disease Restless leg syndrome Right bundle branch block (RBBB) Sick sinus syndrome Statin intolerance Surgical History History of cholecystectomy History of coronary artery bypass graft History of permanent cardiac pacemaker placement Family History Mother Diabetes mellitus Congestive heart failure CAD (coronary artery disease) Son Diabetes mellitus Social History household members: none Smoking Status: Former smoker alcohol intake: former Assessment & Plan Assessment & Plan narrative: GI bleed appears to be small bowel. Plan: We have limited resources here for evaluation for small bowel bleeding that is low volume but persistent. Anticoagulation held. CT scan of abdomen today to see if it is an inflammatory or ischemic issue. May require transfer to facility with push endoscopy. Time Spent With Patient Time with patient: less than 30 minutes Critical Care time: I spent a total of [] minutes of critical care time on this patient's care today; this time is exclusive of procedural time. Quality VTE Deep Vein Thrombosis/Pulmonary Embolism Present on Admission: No
--- NOTE | 2021-04-19 11:54 | DI.CT.S_ITS ---
PROCEDURE: CT ABDOMEN PELVIS W CON INDICATIONS: r/o ischemic colitis TECHNIQUE: After the administration of oral and IV contrast, axial sections were acquired from the lung bases to the pubic symphysis. Coronal and sagittal reformats were performed. For radiation dose reduction, the following was used: automated exposure control, adjustment of mA and/or kV according to patient size. COMPARISON: None. FINDINGS: Image quality: Excellent. Lung bases: Minimal to mild bilateral effusions, right greater than left with superimposed consolidations. Heart: No significant findings. ABDOMEN: Liver: Liver is enlarged with steatosis. Gallbladder: Gallbladder is not visualized. Biliary ducts: Unremarkable. Pancreas: Unremarkable. Spleen: Unremarkable. Adrenal Glands: Unremarkable. Kidneys and Ureters: Kidneys are atrophic bilaterally. There is a punctate nonobstructing left renal calculus. Stomach and Bowel: Stomach, small bowel loops, and colon are nonobstructive. There is an overall appearance thickening within the sigmoid colon. Scattered diverticula are present. There is minimal pericolonic inflammatory change. Prominent duodenal diverticulum is noted. Peritoneum: Moderate dependent pelvic fluid is present.. Ventral Wall: No hernia. Abdominal Nodes: No retroperitoneal or mesenteric adenopathy by size criteria. 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 The origin of the superior mesenteric artery demonstrates calcifications with narrowing less than 40%. Visualized portions of the inferior mesenteric artery appear patent. The aorta demonstrates mural calcifications consistent with atherosclerotic disease. Mural thrombus is noted within a short segment of the infrarenal abdominal aorta. Visualized portions of the iliac arteries are heavily calcified with luminal narrowing. PELVIS: Pelvic Organs: Unremarkable. Bladder: Unremarkable. Pelvic Nodes: No enlarged lymph nodes. Miscellaneous: No inguinal hernias are seen. Bones: Unremarkable. IMPRESSION: 1. Moderate dependent pelvic fluid. 2. Thickened appearance of the sigmoid colon, with very minimal areas of pericolonic stranding. While this could represent colitis, incomplete distention should also be considered. 3. Patency of the celiac axis, superior and inferior mesenteric arteries as above, although stenosis is noted. Dictated by: Sherlyn Ho M.D. on 04/19/2021 at 12:06 Approved by: Sherlyn Ho M.D. on 04/19/2021 at 12:18
--- NOTE | 2021-04-19 12:49 | P.PN_ITS ---
Subjective Subjective Date Patient Seen: 04/19/21 Interval history: The patient is an 85-year-old female who was admitted to the hospital for lower GI bleeding. She underwent upper endoscopy as well as colonoscopy yesterday. The upper endoscopy and colonoscopy did not reveal a source of bleeding. However the colonoscopy did revealed blood in the cecum and terminal ileum. It is suspected that the bleeding is in the small bowel. The patient denies any abdominal pain. She did have a large bowel movement today with laci blood, seen as maroon-colored stool earlier. Exam Vital Signs (past 8 hours): - 04/19/21 07:00 04/19/21 10:00 Temperature 96 F L Pulse Rate 60 Pulse Rate [Orthostatic Lying] 67 Pulse Rate [Orthostatic Sitting] 71 Pulse Rate [Orthostatic Standing] 60 Respiratory Rate 14 Blood Pressure 143/68 H Blood Pressure [Orthostatic Lying] 131/64 Blood Pressure [Orthostatic Sitting] 137/75 Blood Pressure [Orthostatic Standing] 123/65 Pulse Oximetry 95 Oxygen Delivery Method Room Air Oxygen Flow Rate 0 Narrative Exam Narrative: Pleasant female lying in bed in no obvious distress Resp Other: Lungs are clear to auscultation Cardio Other: Cardiac exam: Irregularly irregular Nl Sl S2 GI Other: Abd: soft/ non tender/ non distended/ no palpable masses Extrem Other: 2+ edema Objective Labs Result Diagrams: 04/19/21 07:10 04/19/21 07:10 Labs: Laboratory Results - last 24 hr 04/19/21 04/19/21 04/19/21 07:10 07:10 07:10 WBC 5.7 RBC 3.46 L Hgb 9.6 L Hct 29.5 L MCV 85.3 MCH 27.7 MCHC 32.5 RDW 17.3 H Plt Count 217 Neut % (Auto) 62.4 Lymph % (Auto) 23.5 L [place] % (Auto) 9.2 Eos % (Auto) 3.9 Baso % (Auto) 1.0 Neut # (Auto) 3500 Lymph # (Auto) 1300 [place] # (Auto) 500 Eos # (Auto) 200 Baso # (Auto) 100 PT 13.6 H INR 1.2 APTT 40 H Sodium 141 Potassium 4.5 Chloride 106 Carbon Dioxide 32 BUN 25 H Creatinine 1.35 H Estimated GFR 37.3 L BUN/Creatinine Ratio 18.5 Glucose 80 Calcium 8.8 Total Bilirubin 0.5 AST 27 ALT 15 Alkaline Phosphatase 96 Total Protein 6.1 L Albumin 3.3 L Globulin 2.8 Albumin/Globulin Ratio 1.2 [facility] Medical History Acquired hypothyroidism Chronic kidney disease, stage III (moderate) Coronary artery disease involving [place] coronary artery Essential hypertension History of myocardial infarction History of stroke Hyperlipidemia Non-insulin dependent type 2 diabetes mellitus Paroxysmal atrial fibrillation Peripheral vascular disease due to secondary diabetes Reactive airway disease Restless leg syndrome Right bundle branch block (RBBB) Sick sinus syndrome Statin intolerance Surgical History History of cholecystectomy History of coronary artery bypass graft History of permanent cardiac pacemaker placement Family History Mother Diabetes mellitus Congestive heart failure CAD (coronary artery disease) Son Diabetes mellitus Social History household members: none Smoking Status: Former smoker alcohol intake: former Assessment & Plan Assessment & Plan narrative: Acute lower GI bleed, present on admission, in the setting of sick sinus syndrome, proximal atrial fibrillation anticoagulated on Eliquis, pacemaker, acute on chronic, present on admission-patient is stable and in no distress. -upper lower endoscopy reveals no evidence of a source of bleeding -blood in the cecum and terminal ileum suggest small-bowel bleeding -H&H stable -patient continues to pass blood -CT of the abdomen and pelvis obtained today, reveals a clot in the infrarenal aorta, thickening of the sigmoid colon, and a large duodenal diverticulum -will continue to observe the patient to ensure that no further bleeding occurs -will follow H&H -will continue to hold Eliquis at this time -continue clear liquid diet ? 2. Chronic atrial fibrillation in the setting of history of [place] and stroke, chronic, present admission -continue patient's lisinopril, Coreg 37.5 b.i.d. felodipine -monitored on telemetry, Eliquis on hold 3. Hyperlipidemia and coronary artery disease associated [id number] type 2 diabetes resulting in chronic kidney disease stage 3, chronic, present on admission -patient placed on diabetes protocol, blood sugar checks q.6 hours while NPO then change to a.c. HS, low-dose sliding scale -continue patient's Crestor, and glyburide once no longer NPO -A1c 6.2%. Consider cessation of glyburide. -patient was hypoglycemic this morning, agree with holding oral hypoglycemic agent 4. Reactive airway disease, chronic, present on admission -respiratory consult as needed, continue patient's Symbicort and albuterol inhalers 5. Acquired hypothyroidism, chronic, present on admission -Continue patient's levothyroxine -TSH 21.4, free t4 ordered. consider increase in levothyroxine dosing. -will increase thyroid medication 6. Restless leg syndrome, chronic, present on admission Continue patient's Mirapex, 7. Chronic kidney disease stage 3, related to diabetes, hyperlipidemia, CAD, & PVD, chronic, present on admission -initial LADLE POURER 1.63, BUN 40- 03/01/2021 creatinine 1.78, BUN 44 -patient appears to be at baseline Code status:DNR Time Spent With Patient Critical Care time: I spent a total of [] minutes of critical care time on this patient's care today; this time is exclusive of procedural time. Quality VTE Deep Vein Thrombosis/Pulmonary Embolism Present on Admission: No
[2021-04-19] MEDS: SODIUM CHLORIDE 0.9% FLUSH 10 ML IV (21:10)
[2021-04-20] VITALS (11 sets, daily range): BP systolic 135–161; BP diastolic 63–84; PULSE 60–65; RESP 15–18; TEMP 35.6–36.6; O2SAT 93–99
[2021-04-20] MEDS: PANTOPRAZOLE DR 40 MG TABLET PO (05:16)
[2021-04-20] MEDS: LEVOTHYROXINE 100 MCG TABLET PO (05:16)
[2021-04-20 06:27] LABS: Add Manual Diff / Slide Review NO; Basophils Absolute Auto 0 /uL (0-100); Basophils Percent Auto 0.6 % (0-2); Eosinophils Absolute Auto 200 /uL (0-450); Eosinophils Percent Auto 3.4 % (2-4); Hematocrit 28.5 % (36-46); Hemoglobin 9.3 g/dL (12.0-16.0); Lymphocytes Absolute Auto 1700 /uL (1100-4500); Lymphocytes Percent Auto 29.5 % (25-40); Mean Corpuscular HGB Conc 32.7 % (30-36); Mean Corpuscular Hemoglobin 27.8 PG (26-34); Monocytes Absolute Auto 600 /uL (0-900); Monocytes Percent Auto 10.5 % (3-14); Neutrophils Absolute Auto 3200 /uL (1500-7000); Platelet Count 222 X10^3/uL (150-400); Red Blood Cell Count 3.36 X10^6/uL (4.0-5.2); Red Cell Distribution Width 17.2 % (11.6-14.8); White Blood Cell Count 5.7 X10^3/uL (4.5-11.0)
[2021-04-20 06:28] LABS: BUN Creatinine Ratio 13.8 (6-22); Blood Urea Nitrogen 19 mg/dL (7-17); Calcium 8.8 mg/dL (8.4-10.2); Carbon Dioxide 31 mmol/L (22-32); Chloride 104 mmol/L (98-107); Estimated Glomerular Filt Rate 36.3 mL/min (>60); Glucose 75 mg/dL (80-110); HEMOLYSIS < 15 (0-50); Sodium 139 mmol/L (137-145)
[2021-04-20] MEDS: lisinopriL 5 MG TABLET PO ×2 (08:50→20:49)
[2021-04-20] MEDS: ACETAMINOPHEN 325 MG TABLET 650 MG PO (08:51)
[2021-04-20] MEDS: carvediloL 12.5 MG TABLET 37.5 MG PO ×2 (08:51→20:49)
[2021-04-20] MEDS: BUDESONIDE 0.5 MG/2 ML NEB INH ×2 (08:55→20:56)
[2021-04-20] MEDS: ALBUTEROL 2.5 MG/3 ML NEB (ADULT) INH ×3 (08:55→20:56)
[2021-04-20] MEDS: SODIUM CHLORIDE 0.9% FLUSH 10 ML IV ×2 (09:02→20:51)
--- NOTE | 2021-04-20 12:36 | P.PN_ITS ---
Subjective Subjective Date Patient Seen: 04/20/21 Interval history: Chart check to day. CT scan reviewed and there is reason for small bowel ischemia, no glaring location or source seen on CT. Hct/hgb stable Plan: feed and watch. Exam Vital Signs (past 8 hours): - 04/20/21 05:19 04/20/21 09:00 04/20/21 09:02 Temperature 97.9 F 96.2 F L Pulse Rate 62 60 65 Respiratory Rate 18 18 16 Blood Pressure 140/64 138/63 Pulse Oximetry 97 93 98 04/20/21 12:35 Temperature 96.2 F L Pulse Rate 60 Respiratory Rate 18 Blood Pressure 156/76 H Pulse Oximetry 94 Oxygen Delivery Method Room Air Oxygen Flow Rate 0 Objective Labs Result Diagrams: 04/20/21 05:30 04/20/21 05:30 Labs: Laboratory Results - last 24 hr 04/20/21 04/20/21 05:30 05:30 WBC 5.7 RBC 3.36 L Hgb 9.3 L Hct 28.5 L MCV 85.0 MCH 27.8 MCHC 32.7 RDW 17.2 H Plt Count 222 Neut % (Auto) 56.0 Lymph % (Auto) 29.5 [place] % (Auto) 10.5 Eos % (Auto) 3.4 Baso % (Auto) 0.6 Neut # (Auto) 3200 Lymph # (Auto) 1700 [place] # (Auto) 600 Eos # (Auto) 200 Baso # (Auto) 0 Sodium 139 Potassium 4.0 Chloride 104 Carbon Dioxide 31 BUN 19 H Creatinine 1.38 H Estimated GFR 36.3 L BUN/Creatinine Ratio 13.8 Glucose 75 L Calcium 8.8 PFSH Medical History Acquired hypothyroidism Chronic kidney disease, stage III (moderate) Coronary artery disease involving [place] coronary artery Essential hypertension History of myocardial infarction History of stroke Hyperlipidemia Non-insulin dependent type 2 diabetes mellitus Paroxysmal atrial fibrillation Peripheral vascular disease due to secondary diabetes Reactive airway disease Restless leg syndrome Right bundle branch block (RBBB) Sick sinus syndrome Statin intolerance Surgical History History of cholecystectomy History of coronary artery bypass graft History of permanent cardiac pacemaker placement Family History Mother Diabetes mellitus Congestive heart failure CAD (coronary artery disease) Son Diabetes mellitus Social History household members: none Smoking Status: Former smoker alcohol intake: former Assessment & Plan Assessment & Plan narrative: No exact source found. Plan: feed and watch. No restarting anticoagulation for now. Time Spent With Patient Critical Care time: I spent a total of [] minutes of critical care time on this patient's care today; this time is exclusive of procedural time. Quality VTE Deep Vein Thrombosis/Pulmonary Embolism Present on Admission: No
--- NOTE | 2021-04-20 14:31 | P.PN_ITS ---
Subjective Subjective Date Patient Seen: 04/20/21 Interval history: Patient reports melanotic stool today. No abdominal crampy. She would like to advance her diet. Exam Vital Signs (past 8 hours): - 04/20/21 09:00 04/20/21 09:02 04/20/21 12:35 Temperature 96.2 F L 96.2 F L Pulse Rate 60 65 60 Respiratory Rate 18 16 18 Blood Pressure 138/63 156/76 H Pulse Oximetry 93 98 94 04/20/21 13:45 Temperature Pulse Rate 61 Respiratory Rate 16 Blood Pressure Pulse Oximetry 97 Oxygen Delivery Method Room Air Oxygen Flow Rate 0 Narrative Exam Narrative: pleasant female resting comfortably Resp Other: lungs: clear to auscultation Cardio Other: Irreglarly irregular, nl Sl S2 GI Other: Abd: soft/ non tender/ nondistended Extrem Other: 2+ edema bilaterally Objective Labs Result Diagrams: 04/20/21 05:30 04/20/21 05:30 Labs: Laboratory Results - last 24 hr 04/20/21 04/20/21 05:30 05:30 WBC 5.7 RBC 3.36 L Hgb 9.3 L Hct 28.5 L MCV 85.0 MCH 27.8 MCHC 32.7 RDW 17.2 H Plt Count 222 Neut % (Auto) 56.0 Lymph % (Auto) 29.5 [place] % (Auto) 10.5 Eos % (Auto) 3.4 Baso % (Auto) 0.6 Neut # (Auto) 3200 Lymph # (Auto) 1700 [place] # (Auto) 600 Eos # (Auto) 200 Baso # (Auto) 0 Sodium 139 Potassium 4.0 Chloride 104 Carbon Dioxide 31 BUN 19 H Creatinine 1.38 H Estimated GFR 36.3 L BUN/Creatinine Ratio 13.8 Glucose 75 L Calcium 8.8 PFSH Medical History Acquired hypothyroidism Chronic kidney disease, stage III (moderate) Coronary artery disease involving [place] coronary artery Essential hypertension History of myocardial infarction History of stroke Hyperlipidemia Non-insulin dependent type 2 diabetes mellitus Paroxysmal atrial fibrillation Peripheral vascular disease due to secondary diabetes Reactive airway disease Restless leg syndrome Right bundle branch block (RBBB) Sick sinus syndrome Statin intolerance Surgical History History of cholecystectomy History of coronary artery bypass graft History of permanent cardiac pacemaker placement Family History Mother Diabetes mellitus Congestive heart failure CAD (coronary artery disease) Son Diabetes mellitus Social History household members: none Smoking Status: Former smoker alcohol intake: former Assessment & Plan Assessment & Plan narrative: Acute lower GI bleed, present on admission, in the setting of sick sinus syndrome, proximal atrial fibrillation anticoagulated on Eliquis, pacemaker, acute on chronic, present on admission-patient is stable and in no distress. -upper lower endoscopy reveals no evidence of a source of bleeding -blood in the cecum and terminal ileum suggest small-bowel bleeding -H&H stable -patient continues to pass blood -CT of the abdomen and pelvis obtained reveals a clot in the infrarenal aorta, thickening of the sigmoid colon, and a large duodenal diverticulum -will continue to observe the patient to ensure that no further bleeding occurs -will follow H&H -will continue to hold Eliquis at this time -advance diet as tolerated -repeat labs in am -if no further evidence of bleeding can discharge home tomorrow off eliquis ? 2. Chronic atrial fibrillation in the setting of history of [place] and stroke, chronic, present admission -continue patient's lisinopril, Coreg 37.5 b.i.d. felodipine -monitored on telemetry, Eliquis on hold 3. Hyperlipidemia and coronary artery disease associated [id number] type 2 diabetes resulting in chronic kidney disease stage 3, chronic, present on admission -patient placed on diabetes protocol, blood sugar checks q.6 hours while NPO then change to a.c. HS, low-dose sliding scale -continue patient's Crestor, and glyburide once no longer NPO -A1c 6.2%. Consider cessation of glyburide. -patient was hypoglycemic this morning, agree with holding oral hypoglycemic agent 4. Reactive airway disease, chronic, present on admission -respiratory consult as needed, continue patient's Symbicort and albuterol inhalers 5. Acquired hypothyroidism, chronic, present on admission -Continue patient's levothyroxine -TSH 21.4, free t4 ordered. consider increase in levothyroxine dosing. -will increase thyroid medication 6. Restless leg syndrome, chronic, present on admission Continue patient's Mirapex, 7. Chronic kidney disease stage 3, related to diabetes, hyperlipidemia, CAD, & PVD, chronic, present on admission -initial [employer] 1.63, BUN 40- 03/01/2021 creatinine 1.78, BUN 44, Creat 1.38 today -patient appears to be at baseline Code status:DNR Time Spent With Patient Critical Care time: I spent a total of [] minutes of critical care time on this patient's care today; this time is exclusive of procedural time. Quality VTE Deep Vein Thrombosis/Pulmonary Embolism Present on Admission: No
--- NOTE | 2021-04-20 14:51 | P.PN_ITS ---
Subjective Subjective Date Patient Seen: 04/20/21 Interval history: Patient remains non verbal. She is unable to participate with PT/OT or speech. She continues to be unable to eat. She opens her eyes but does not respond Exam Vital Signs (past 8 hours): - 04/20/21 09:00 04/20/21 09:02 04/20/21 12:35 Temperature 96.2 F L 96.2 F L Pulse Rate 60 65 60 Respiratory Rate 18 16 18 Blood Pressure 138/63 156/76 H Pulse Oximetry 93 98 94 04/20/21 13:45 Temperature Pulse Rate 61 Respiratory Rate 16 Blood Pressure Pulse Oximetry 97 Oxygen Delivery Method Room Air Oxygen Flow Rate 0 Narrative Exam Narrative: ill appearing female lying in bed Resp Other: decreased breath sounds with end expiratory wheezing Cardio Other: RRR nl Sl S2 GI Other: Abd: soft/ non tender/ non distended Extrem Other: no Edema Objective Labs Result Diagrams: 04/20/21 05:30 04/20/21 05:30 Labs: Laboratory Results - last 24 hr 04/20/21 04/20/21 05:30 05:30 WBC 5.7 RBC 3.36 L Hgb 9.3 L Hct 28.5 L MCV 85.0 MCH 27.8 MCHC 32.7 RDW 17.2 H Plt Count 222 Neut % (Auto) 56.0 Lymph % (Auto) 29.5 [place] % (Auto) 10.5 Eos % (Auto) 3.4 Baso % (Auto) 0.6 Neut # (Auto) 3200 Lymph # (Auto) 1700 [place] # (Auto) 600 Eos # (Auto) 200 Baso # (Auto) 0 Sodium 139 Potassium 4.0 Chloride 104 Carbon Dioxide 31 BUN 19 H Creatinine 1.38 H Estimated GFR 36.3 L BUN/Creatinine Ratio 13.8 Glucose 75 L Calcium 8.8 PFSH Medical History Acquired hypothyroidism Chronic kidney disease, stage III (moderate) Coronary artery disease involving [place] coronary artery Essential hypertension History of myocardial infarction History of stroke Hyperlipidemia Non-insulin dependent type 2 diabetes mellitus Paroxysmal atrial fibrillation Peripheral vascular disease due to secondary diabetes Reactive airway disease Restless leg syndrome Right bundle branch block (RBBB) Sick sinus syndrome Statin intolerance Surgical History History of cholecystectomy History of coronary artery bypass graft History of permanent cardiac pacemaker placement Family History Mother Diabetes mellitus Congestive heart failure CAD (coronary artery disease) Son Diabetes mellitus Social History household members: none Smoking Status: Former smoker alcohol intake: former Assessment & Plan Time Spent With Patient Critical Care time: I spent a total of [] minutes of critical care time on this patient's care today; this time is exclusive of procedural time. Quality VTE Deep Vein Thrombosis/Pulmonary Embolism Present on Admission: No
[2021-04-21 00:20] VITALS: BP 168/77; PULSE 61; RESP 18; TEMP 36.6; O2SAT 94
[2021-04-21 04:00] VITALS: BP 147/70; PULSE 79; RESP 18; TEMP 36.6; O2SAT 94
[2021-04-21 05:28] LABS: BUN Creatinine Ratio 14.3 (6-22); Blood Urea Nitrogen 21 mg/dL (7-17); Calcium 8.4 mg/dL (8.4-10.2); Carbon Dioxide 29 mmol/L (22-32); Chloride 105 mmol/L (98-107); Estimated Glomerular Filt Rate 33.8 mL/min (>60); Glucose 110 mg/dL (80-110); HEMOLYSIS < 15 (0-50); Potassium 4.1 mmol/L (3.4-5.1); Sodium 140 mmol/L (137-145)
[2021-04-21 05:39] LABS: Add Manual Diff / Slide Review NO; Basophils Absolute Auto 0 /uL (0-100); Basophils Percent Auto 0.9 % (0-2); Eosinophils Absolute Auto 200 /uL (0-450); Eosinophils Percent Auto 3.9 % (2-4); Hematocrit 28.7 % (36-46); Hemoglobin 9.2 g/dL (12.0-16.0); Lymphocytes Absolute Auto 1500 /uL (1100-4500); Lymphocytes Percent Auto 30.6 % (25-40); Mean Corpuscular HGB Conc 32.2 % (30-36); Mean Corpuscular Hemoglobin 27.5 PG (26-34); Mean Corpuscular Volume 85.3 fL (80-100); Monocytes Absolute Auto 500 /uL (0-900); Monocytes Percent Auto 9.6 % (3-14); Neutrophils Absolute Auto 2600 /uL (1500-7000); Platelet Count 217 X10^3/uL (150-400); Red Blood Cell Count 3.36 X10^6/uL (4.0-5.2); Red Cell Distribution Width 17.5 % (11.6-14.8); White Blood Cell Count 4.7 X10^3/uL (4.5-11.0)
[2021-04-21] MEDS: PANTOPRAZOLE DR 40 MG TABLET PO (06:11)
[2021-04-21] MEDS: LEVOTHYROXINE 100 MCG TABLET PO (06:11)
[2021-04-21 07:45] VITALS: BP 125/62; PULSE 62; RESP 16; TEMP 35.4; O2SAT 95
--- NOTE | 2021-04-21 08:35 | PM.DS.1 ---
History of Present Illness History of Present Illness Date Patient Seen: 04/21/21 Time Patient Seen: 08:35 Chief complaint: Dx GI bleed Narrative: Per Patricia Boston, SUPERVISOR CLAIMS-: Sharon Mcnally is a 85 year old female with a medical history of sick sinus syndrome with pacer, proximal atrial fibrillation on eliquis, essential hypertension, coronary artery disease in [place] artery, reactive airway disease, [id number]-[id number] type 2 diabetes, history of PR, history of stroke, hyperlipidemia, restless leg syndrome, right bundle emily block, PVD, and CKD stage III being transferred from [facility] for lower GI Bleed, Dr. Russo has accepted and will consult/scope tomorrow.? Patient was recently hospitalized at [facility] from 03/04-03/18/2021 with a discharge diagnosis of CVA (left leg weakness, dysarthria, and mild facial droop) left leg cellulitis, reactive airway disease and restless leg syndrome.? Through patient reports that she developed rust colored stool approximately 1 week ago then 3 or so days ago she had bright red diarrhea, then she continued to have small bowel movements the last few days that were continued to be rest colored she notes that she stopped her Eliquis 2.5 days ago following the red blood diarrhea.? Over the past week she has had increasing mild shortness of breath, chills, leg pain, and increasing fatigue.? She has no history GI bleed.? She believes she had a colonoscopy and EGD last about 2008.? She denies chest pain, abdominal pain, nausea, vomiting, urinary symptoms, hematuria, new weakness, numbness, tingling, headache, changes in vision.? She denies any recent illness injury or trauma.? Patient arrived with her 1st unit of blood infusing patient is O-positive.? Her vital signs are stable temp 97.1?, BP 147/82, HR 72, RR 18, O2 saturation 93% on room air.? Patient does note that she ambulates at home with a stick. Patient's labs at [facility] HGB 6.3, HCT 19.8, BUN 40, creatinine 1.63, glucose 216, AST 13, alk-phos 119, PT 10.7, INR 1.0, albumin 3.2, RBC 2.3, lipase and troponin both WNL.? CT of abdomen with contrast no acute inflammatory process present mild constipation, and sigmoid diverticulosis. Discharge Providers Provider Date of admission: 04/16/21 19:49 Discharge Date: 04/21/21 Consults: 04/16/21 20:11 Consult to General Surgery Routine Comment: Consulting Provider: Alfredo Russo Reason for consultation: GI Bleed Has provider been notified: Yes 04/16/21 22:21 Consult to Dietitian, Adult Routine Comment: Reason For Exam: diabetic Consult to Pastoral Services Routine Comment: pt is spiritism Discharge provider: Lon Mireles DO Summary Hospital Course Discharge Diagnosis: 1. Acute probable lower GI bleed, present on admission, in the setting of sick sinus syndrome, proximal atrial fibrillation anticoagulated on Eliquis, pacemaker, acute on chronic, present on admission 2. Chronic atrial fibrillation in the setting of history of PR and stroke, chronic, present admission 3. Hyperlipidemia and coronary artery disease associated [id number] type 2 diabetes resulting in chronic kidney disease stage 3, chronic, present on admission 4. Reactive airway disease, chronic, present on admission 5. Acquired hypothyroidism, chronic, present on admission 6. Restless leg syndrome, chronic, present on admission 7. Chronic kidney disease stage 3, related to diabetes, hyperlipidemia, CAD, & PVD, chronic, present on admission 8. Acute blood loss anemia secondary to problem 1. Hospital Course: This is an 85-year-old female with a past medical history of chronic atrial fibrillation, CAD, prior CVA, hyperlipidemia, reactive airway disease, hypothyroidism, CKD stage 3, and diabetes who was admitted with acute blood loss anemia secondary to gastrointestinal bleeding. She underwent an upper endoscopy and colonoscopy without a revealing source although there was evidence on colonoscopy of recent bleeding which may suggest an upper GI bleed. She was started on Protonix and her Eliquis was held. She was unable to be transferred for further evaluation of GI bleeding to determine the source due to lack of bed availability, however the patient was able to tolerate a diet on the day of discharge in her hemoglobin had remained stable around 9. She can follow-up as an outpatient with her primary care provider for further referral to a GI specialist for further evaluation and possible capsule endoscopy. She was also noted to have an elevated TSH, she should follow-up with her primary care provider for dose adjustments of her home levothyroxine She also had a relatively low A1c around 6, and her home glimepiride is recommended to be held upon discharge. She should continue to hold her home Eliquis. She was discharged on oral PPI. Time Spent with Patient Time spent: Greater than 30 minutes Exam Vital Signs (past 8 hours): - 04/21/21 04:00 Temperature 97.9 F Pulse Rate 79 Respiratory Rate 18 Blood Pressure 147/70 H Pulse Oximetry 94 Oxygen Delivery Method Room Air Oxygen Flow Rate 0 Narrative Exam Narrative: General:? Patient is a well-developed, well-nourished in no distress at this time. Lungs:? no respiratory distress. No rhonchi or rales or wheezing. Cardio:?RRR with no m/r/g. Abdomen:? S NT ND Musculoskeletal:? No tenderness of joint effusions Skin:? Warm dry and intact without ulcerations or petechiae. Neuro:? Alert and orientated x3, strength is +5/5 in all extremities, sensation to touch intact, no gross deficits noted of cranial nerves. Psych:? Patient has a well-kept appearance, appropriate affect, mental status attitude thought context and judgment are appropriate for age. Objective Labs Result Diagrams: 04/21/21 04:35 04/21/21 04:35 Labs: Laboratory Results - last 24 hr 04/21/21 04/21/21 04:35 04:35 WBC 4.7 RBC 3.36 L Hgb 9.2 L Hct 28.7 L MCV 85.3 MCH 27.5 MCHC 32.2 RDW 17.5 H Plt Count 217 Neut % (Auto) 55.0 Lymph % (Auto) 30.6 [place] % (Auto) 9.6 Eos % (Auto) 3.9 Baso % (Auto) 0.9 Neut # (Auto) 2600 Lymph # (Auto) 1500 [place] # (Auto) 500 Eos # (Auto) 200 Baso # (Auto) 0 Sodium 140 Potassium 4.1 Chloride 105 Carbon Dioxide 29 BUN 21 H Creatinine 1.47 H Estimated GFR 33.8 L BUN/Creatinine Ratio 14.3 Glucose 110 Calcium 8.4 PFSH Medical History Acquired hypothyroidism Chronic kidney disease, stage III (moderate) Coronary artery disease involving [place] coronary artery Essential hypertension History of myocardial infarction History of stroke Hyperlipidemia Non-insulin dependent type 2 diabetes mellitus Paroxysmal atrial fibrillation Peripheral vascular disease due to secondary diabetes Reactive airway disease Restless leg syndrome Right bundle branch block (RBBB) Sick sinus syndrome Statin intolerance Surgical History History of cholecystectomy History of coronary artery bypass graft History of permanent cardiac pacemaker placement Family History Mother Diabetes mellitus Congestive heart failure CAD (coronary artery disease) Son Diabetes mellitus Social History household members: none Smoking Status: Former smoker alcohol intake: former Discharge Plan Discharge Plan Patient Disposition: Home Provider Discharge Comment: You were admitted to the hospital with GI bleeding. No definitive source was found, but you are recommended to follow up with a GI physician for further evaluation in the near future. Please follow up with your PCP as soon as possible for this referral. Your eliquis was stopped, do not resume until source of bleeding is found. If you become dizzy or short of breath please seek attention to see about rechecking your blood counts again. Discharge orders & Medications Prescriptions: New pantoprazole [Protonix] 40 mg tablet,delayed release (DR/EC) 40 mg PO DAILY 90 Days Qty: 90 RF: 0 Continued carvedilol [Coreg] 12.5 mg Tablet 37.5 mg PO BID RF: 0 albuterol 90 mcg/actuation Aerosol 1 mcg INHALATION PRN PRN (Reason: sob) RF: 0 azelastine 137 mcg (0.1 %) Aerosol,[place] 1 spray INTRANASAL BID RF: 0 vitamin A-vitamin C-vit E-min Tablet 1 tab PO DAILY RF: 0 calcium acetate(phosphat bind) 667 mg Capsule 667 mg PO TID RF: 0 budesonide-formoterol [Symbicort] 160-4.5 mcg/actuation Hfa Aerosol Inhaler 2 puff INHALATION BID RF: 0 felodipine 2.5 mg Tablet Extended Release 24 Hr 2.5 mg PO DAILY RF: 0 levothyroxine 100 mcg Tablet 100 mcg PO DAILY RF: 0 nitroglycerin 0.4 mg Tablet, Sublingual 0.4 mg SUBLINGUAL Q5-15M PRN (Reason: Chest Pain) RF: 0 lisinopril 5 mg Tablet 5 mg PO BID RF: 0 cinnamon bark 500 mg Capsule 500 mg PO DAILY RF: 0 cholecalciferol (vitamin D3) 25 mcg (1,000 unit) Tablet 25 mcg PO DAILY RF: 0 pramipexole [Mirapex] 0.25 mg Tablet 0.25 mg PO BEDTIME RF: 0 vitamin B complex [B Complex-Vitamin B12] Tablet 1 tab PO DAILY RF: 0 rosuvastatin [Crestor] 5 mg Tablet 5 mg PO DAILY RF: 0 Discontinued apixaban 5 mg Tablet 5 mg PO BID RF: 0 glimepiride 2 mg Tablet 6 mg PO DAILY RF: 0 Diet/Activity/Treatments Diet: Diet as Tolerated Activity: As tolerated Visit Report/Discharge Packet Instructions: DI for Gastrointestinal Bleeding Quality VTE Deep Vein Thrombosis/Pulmonary Embolism Present on Admission: No
[2021-04-21] MEDS: ALBUTEROL 2.5 MG/3 ML NEB (ADULT) INH (09:09)
[2021-04-21] MEDS: BUDESONIDE 0.5 MG/2 ML NEB INH (09:09)
[2021-04-21 09:10] VITALS: PULSE 72; RESP 16; O2SAT 98
[2021-04-21 09:25] VITALS: BP 125/62; PULSE 72
[2021-04-21] MEDS: lisinopriL 5 MG TABLET PO (09:25)
[2021-04-21 09:29] VITALS: BP 125/62; PULSE 72
[2021-04-21] MEDS: carvediloL 12.5 MG TABLET 37.5 MG PO (09:29)
[2021-04-21] MEDS: SODIUM CHLORIDE 0.9% FLUSH 10 ML IV (09:29)
== END 2021-04-21 11:05 | disposition home or self-care (01) | DRG 378 ==
PROVIDERS: Internal Medicine; Nurse Practitioner Family; Surgery; Admitting Provider Internal Medicine; Referring Provider Internal Medicine; Visit Provider Internal Medicine
PROC: 0DJD8ZZ Inspection of Lower Intestinal Tract, Via Natural or Artificial Opening Endoscopic (ICD-10-PCS; CPT 45378; principal; 2021-04-18 12:15)
PROC: 0DJ08ZZ Inspection of Upper Intestinal Tract, Via Natural or Artificial Opening Endoscopic (ICD-10-PCS; CPT 43235; 2021-04-18 12:15)
DX: K92.1 Melena (principal); D62 Acute posthemorrhagic anemia; I48.20 Chronic atrial fibrillation, unspecified; Z79.01 Long term (current) use of anticoagulants; I49.5 Sick sinus syndrome; E78.5 Hyperlipidemia, unspecified; E11.22 Type 2 diabetes mellitus with diabetic chronic kidney disease; I12.9 Hypertensive chronic kidney disease with stage 1 through stage 4 chronic kidney disease, or unspecified chronic kidney disease; N18.30 Chronic kidney disease, stage 3 unspecified; I25.10 Atherosclerotic heart disease of native coronary artery without angina pectoris; G25.81 Restless legs syndrome; E03.9 Hypothyroidism, unspecified; I25.2 Old myocardial infarction; J45.909 Unspecified asthma, uncomplicated; I73.9 Peripheral vascular disease, unspecified; Z79.84 Long term (current) use of oral hypoglycemic drugs; Z95.0 Presence of cardiac pacemaker; Z20.822 Contact with and (suspected) exposure to COVID-19; Z87.891 Personal history of nicotine dependence; Z66 Do not resuscitate; Z86.73 Personal history of transient ischemic attack (TIA), and cerebral infarction without residual deficits; Z95.1 Presence of aortocoronary bypass graft; Z23 Encounter for immunization
CPT/HCPCS: 36415; 36430; 36592; 43235; 45378; 74177; 80048; 80053; 82962; 83036; 83735; 84439; 84443; 84484; 85014; 85018; 85025; 85610; 85730; 86850; 86900; 86901; 90471; 90662; 94640; 99232; P9016; C9113; J1815; J7613